=== PATIENT | female | born 1995 ===

== ENCOUNTER 2024-01-12 14:47 | Outpatient (CLI) | payer BC, SELFPAY ==
--- NOTE | ~2024-01-12 | US_ITS ---
EXAMINATION: US OB transvaginal DATE: 01/12/2024 15:42 INDICATION: Low pelvic pain. Viability. TECHNIQUE: Real-time transabdominal and transvaginal pelvic ultrasound was performed. COMPARISON: None. FINDINGS: TRANSABDOMINAL ULTRASOUND: The uterus measures 8.9 x 4.5 x 5.8 cm. TRANSVAGINAL ULTRASOUND: There is an intrauterine gestational sac. A yolk sac is identified. The fet al crown rump length measures 9 mm, which correlates with an estimated gestational age of 7 weeks and 0 day(s) (+/-) 4 day(s). heart motion is identified measuring 132 beats per minute (bpm) by M- mode Doppler. There is a small subchorionic hematoma. The right ovary measures 2.7 x 2.0 x 2.4 cm. Th e left ovary measures 2.4 x 1.2 x 2.7 cm. There is no free fluid in the pelvis. IMPRESSION: 1. Single living intrauterine gestation with estimated date of delivery of 08/30/2024. 2. Small subchorionic hematoma. Reviewed, dictated and finalized at location A. IMPRESSION: 1. Single living intrauterine gestation with estimated date of delivery of 08/12. 2. Small subchorionic hematoma.
== END 2024-01-12 14:48 ==
PROVIDERS: PCP Advanced Practice Midwife; Visit Provider Advanced Practice Midwife
DX: Z36.87 Encounter for antenatal screening for uncertain dates (principal); Z3A.00 Weeks of gestation of pregnancy not specified
CPT/HCPCS: 76817

== ENCOUNTER 2024-02-29 15:30 | Outpatient (CLI) | payer BC, SELFPAY ==
--- NOTE | ~2024-02-29 | US_ITS ---
EXAMINATION: US OB <= 14 weeks fetus DATE: 02/29/2024 15:52 INDICATION: Follow-up subchorionic hematoma during the transition from the first the second trimester of TECHNIQUE: Real-time pelvic ultrasound utilizing both a transvaginal and transabdominal probe was pe rformed. The interpreting radiologist was not present for the study. COMPARISON: 01/12/2024 FINDINGS: The uterus measures 12.6 x 7.9 x 9.7 cm. There is an intrauterine gestational sac. A yolk sac and fe eric pole are identified. The crown rump length measures 7.9 cm, which is concordant with the previous ly estimated gestational age of 13 weeks and days. heart motion is identified measuring 154 ignacia ts per minute (bpm) by M-mode Doppler. The previously seen subchorionic hematoma has resolved. The right and left ovaries are not visualized. There is no free fluid in the pelvis. IMPRESSION: 1. Single living fetus with heart rate of 154 bpm. 2. Resolution of prior subchorionic hematoma. 2. Felicity-rump length of 7.9 cm concordant with the previously estimated gestational age by ultrasound of 13 weeks 6 days with ultrasound estimated date of delivery (SAYDA) of 08/30/2024. Reviewed, dictated and finalized at location A. IMPRESSION: 1. Single living fetus with heart rate of 154 bpm. 2. Resolution of prior subchorionic hematoma. 2. Felicity-rump length of 7.9 cm concordant with the previously estimated gestati onal age by ultrasound of 13 weeks 6 days with ultrasound estimated date of del rubén (SAYDA) of 08/30/2024.
== END 2024-02-29 15:31 ==
LOC: MICIMG 15:30
PROVIDERS: PCP Advanced Practice Midwife; Visit Provider Obstetrics & Gynecology Gynecology
DX: O36.8910 Maternal care for other specified fetal problems, first trimester, not applicable or unspecified (principal); Z3A.00 Weeks of gestation of pregnancy not specified
CPT/HCPCS: 76801